=== PATIENT | male | born 1945 ===

== ENCOUNTER 2017-12-22 15:56 | Emergency (ER) | payer MEDICARE, MEDICAID ==
[2017-12-22 16:16] VITALS: TEMP 97.2
--- NOTE | 2017-12-22 16:33 | C.PDOC ---
History Of Present Illness 72-year-old male, presents to the emergency department requesting refill for his Benicar prescription. Patient states he ran out of meds, and has a f/u appointment with his doctor on 01/09/18. Last pill was taken today. Denies any nausea/vomiting, headache, dizziness, chest pain, shortness of breath, or any other associated symptoms. No other complaints at this time. Time Seen by Provider: 12/22/17 16:21 Chief Complaint (Nursing): Med Refill History Per: Patient History/Exam Limitations: no limitations Current Symptoms Are (Timing): Still Present Past Medical History Reviewed: Historical Data, Nursing Documentation, Vital Signs Vital Signs: Last Vital Signs Temp 97.2 F L 12/22/17 16:12 Pulse 78 12/22/17 17:06 Resp 16 12/22/17 17:06 BP 150/88 12/22/17 17:06 Pulse Ox 98 12/22/17 17:06 - Medical History PMH: HTN Family History: States: No Known Family Hx - Social History Hx Alcohol Use: No Hx Substance Use: No - Immunization History Hx Tetanus Toxoid Vaccination: Yes Hx Influenza Vaccination: Yes Hx Pneumococcal Vaccination: Yes Review Of Systems Constitutional: Negative for: Fever, Chills Cardiovascular: Negative for: Chest Pain, Palpitations Respiratory: Negative for: Shortness of Breath Gastrointestinal: Negative for: Nausea, Vomiting Neurological: Negative for: Weakness, Numbness, Headache, Dizziness Physical Exam - Physical Exam Appears: Non-toxic, No Acute Distress Skin: Normal Color, Warm, Dry, No Rash Head: Atraumatic, Normacephalic Eye(s): bilateral: Normal Inspection, PERRL, EOMI Nose: Normal Oral Mucosa: Moist Lips: Normal Appearing Neck: Normal ROM Cardiovascular: Rhythm Regular, No Murmur Respiratory: Normal Breath Sounds, No Accessory Muscle Use Gastrointestinal/Abdominal: Soft, No Tenderness Extremity: Normal ROM, No Deformity, No Swelling Neurological/Psych: Oriented x3, Normal Speech ED Course And Treatment O2 Sat by Pulse Oximetry: 97 (RA) Pulse Ox Interpretation: Normal Medical Decision Making Medical Decision Making: Patient given Rx for Benicar, will be discharged for outpatient f/u with PMD. All questions answered Disposition Counseled Patient/Family Regarding: Studies Performed, Diagnosis, Need For Followup, Rx Given - Disposition Referrals: Non [facility] Provider, [Non-Staff] - Disposition: HOME/ ROUTINE Disposition Time: 16:30 Condition: GOOD Additional Instructions: FOLLOW UP WITH YOUR PMD ON 01/09/18 SCHEDULED. IF ANY CONCERNING SYMPTOMS DEVELOP RETURN TO ED. Prescriptions: Olmesartan/Hydrochlorothiazide [Benicar Hct 40-12.5 mg Tablet] 1 each PO DAILY # 20 tablet Forms: [employer] (Bruneian), Gen Discharge Inst Macedonian Print Language: GREENLANDIC - Clinical Impression Clinical Impression: Medication refill - Scribe Statement The provider has reviewed the documentation as recorded by the Scribe (Evelyn Ceballos) All medical record entries made by the Scribe were at my direction and personally dictated by me. I have reviewed the chart and agree that the record accurately reflects my personal performance of the history, physical exam, medical decision making, and the department course for this patient. I have also personally directed, reviewed, and agree with the discharge instructions and disposition.
[2017-12-22 17:08] VITALS: BP 150/88; PULSE 78; RESP 16
[2017-12-22 22:39] VITALS: O2SAT 97
== END 2017-12-22 17:06 | disposition home or self-care (01) ==
LOC: C.ER 15:56
DX: Z76.0 Encounter for issue of repeat prescription (principal); I10 Essential (primary) hypertension